=== PATIENT | female | born 1990 | race Hispanic/Latino ===

== ENCOUNTER 2024-05-26 17:08 | Emergency (ER) | payer SELFPAY ==
[~2024-05-26] VITALS: Ht 154.9 cm; Wt 59.0 kg
[~2024-05-26 17:08] MED LIST: AMOXICILLIN500 MG PO; DICLOFENAC SODI75 MG PO; ONDANSETRON ODT4 MG PO
[2024-05-26 17:40] VITALS: PULSE 82; RESP 18; TEMP 98.4; O2SAT 100
== END 2024-05-26 18:19 | disposition home or self-care (01) ==
LOC: ER 17:20
DX: F11.23 Opioid dependence with withdrawal (principal); R10.30 Lower abdominal pain, unspecified; M54.50 Low back pain, unspecified; G40.909 Epilepsy, unspecified, not intractable, without status epilepticus
CPT/HCPCS: 99282